=== PATIENT | male | born 2000 | race African-American/Black ===

== ENCOUNTER 2022-04-16 02:06 | Emergency (ER) | payer SELFPAY ==
[~2022-04-16] VITALS: Ht 177.8 cm; Wt 76.8 kg
[2022-04-16] MEDS ORDERED: IBUPROFEN 600MG TABLET PO ONE (05:45)
[2022-04-16] MEDS ORDERED: BACITRACIN ZINC OINT UDPKT TOP ONE (05:45)
[2022-04-16] MEDS ORDERED: LIDOCAINE HCL/PF 1% 10 MG/ML 5ML VIAL INFIL ONE (05:45)
[2022-04-16] MEDS ORDERED: IBUP-2029 MT (07:16)
[2022-04-16] MEDS ORDERED: CEPH500C2 MT (07:16)
[2022-04-16 07:20] VITALS: BP 126/77
== END 2022-04-16 07:23 | disposition home or self-care (01) ==
LOC: ER 02:06
DX: S01.81XA Laceration without foreign body of other part of head, initial encounter (principal); S60.221A Contusion of right hand, initial encounter; W18.39XA Other fall on same level, initial encounter; Y93.89 Activity, other specified; Y92.89 Other specified places as the place of occurrence of the external cause; Y99.8 Other external cause status
CPT/HCPCS: 12011; 70110; 73130; 99284; J3490; Z7610